=== PATIENT | male | born 1990 | race Caucasian/White ===

== ENCOUNTER 2022-01-12 07:19 | Emergency (ER) | payer OTHER ==
[~2022-01-12] VITALS: Ht 165.1 cm; Wt 75.0 kg
[2022-01-12] MEDS ORDERED: IBUPROFEN 600MG TABLET PO ONE (07:45)
[2022-01-12 07:51] VITALS: BP 109/70
[2022-01-12] MEDS ORDERED: IBUP-2029 MT (08:20)
== END 2022-01-12 09:29 ==
LOC: ER 07:19
DX: S93.491A Sprain of other ligament of right ankle, initial encounter (principal); W18.39XA Other fall on same level, initial encounter; Y93.89 Activity, other specified; Y92.89 Other specified places as the place of occurrence of the external cause; Y99.8 Other external cause status
CPT/HCPCS: 73610; 99283